=== PATIENT | female | born 1970 | race Caucasian/White ===

== ENCOUNTER → 2016-06-21 | Outpatient (CLI) | payer BC ==
[~2016-06-21] MED LIST: MTR600X PO; MULT-506 PO; NORGTAB3 PO; OXYC-57 PO
== END | disposition home or self-care (01) ==
LOC: C.PAPS 13:28
PROVIDERS: ATTEND Obstetrics & Gynecology
DX: Z01.419 Encounter for gynecological examination (general) (routine) without abnormal findings (principal)

== ENCOUNTER → 2016-07-07 | Outpatient (CLI) | payer BC ==
--- NOTE | 2016-07-07 16:41 | MAMMOGRAPHY REPORT ---
BILATERAL DIGITAL SCREENING MAMMOGRAM TOMOSYNTHESIS WITH CAD: 07/07/2016 TECHNIQUE: Breast tomosynthesis in addition to standard 2D mammography was performed. Current study was also evaluated with a Computer Aided Detection (CAD) system. COMPARISON: Comparison is made to exam dated: 03/07/2014 mammogram - [facility]. BREAST COMPOSITION: The tissue of both breasts is extremely dense, which lowers the sensitivity of mammography. FINDINGS: There is a newly visualized round circumscribed 5 mm mass seen within the left superior s ubareolar breast, for which ultrasound and possible additional spot compression tomosynthesis views are recommended for further evaluation. The remainder of both breasts are stable compared to prior exams, without suspicious masses, calcifi cations, or areas of architectural distortion noted. Bilateral benign-appearing calcifications are not significantly changed. IMPRESSION: ACR BI-RADS CATEGORY 0: INCOMPLETE EVALUATION: NEED ADDITIONAL IMAGING EVALUATION Left breast mass, for which additional imaging evaluation is recommended. The patient will be galdamez d to schedule an appointment. Approximately 10% of breast cancers are not detected with mammography. A negative mammographic repor t should not delay biopsy if a clinically suggestive mass is present. Lucia Green M.D. ah/:07/07/2016 14:53:06 Deployment Manager: Brittney BRODY(Jasmin)(Brit), [facility] letter sent: Addl Imaging 0 BI-RADS Code: ACR BI-RADS Category 0: Incomplete Evaluation: Need Additional Imaging Evaluation
== END | disposition home or self-care (01) ==
LOC: C.MAMM 10:20
PROVIDERS: ATTEND Obstetrics & Gynecology
DX: Z12.31 Encounter for screening mammogram for malignant neoplasm of breast (principal); N63 Unspecified lump in breast

== ENCOUNTER → 2016-07-14 | Outpatient (CLI) | payer BC ==
--- NOTE | 2016-07-14 13:30 | MAMMOGRAPHY REPORT ---
ULTRASOUND OF LEFT BREAST: 07/14/2016 CLINICAL HISTORY: Callback from screening mammogram for left breast mass. COMPARISON: Comparison is made to exams dated: 07/07/2016 mammogram and 03/07/2014 mammogram - [facility]. TECHNIQUE: Real-time targeted ultrasound of the left breast was performed. FINDINGS: Targeted ultrasound was performed of the left superior subareolar region, in the region o f the new circumscribed mass seen on the recent tomosynthesis screening mammogram. In the left 12:0 0 subareolar breast, there is an oval anechoic circumscribed parallel mass which measures 5 x 3 x 4 mm. This corresponds with the mammographic mass and is consistent with a benign simple cyst. A few echoes are seen anteriorly within the mass, which are felt to represent artifactual echoes due to t he superficial location of the mass. IMPRESSION: ACR BI-RADS CATEGORY 2: BENIGN Benign 5 mm simple cyst in the left 12:00 subareolar breast, which corresponds with the mammographic mass. There is no sonographic evidence of malignancy. A 1 year screening mammogram is recommended . The patient was verbally notified of the results. Lucia Green M.D. ah/:07/14/2016 09:55:22 Attending Technologist: Tali BRODY(R)(M), [facility] Waste[employer] Supervisor: Lucia Green MD, [facility] letter sent: Normal 1/2 BI-RADS Code: ACR BI-RADS Category 2: Benign
== END | disposition home or self-care (01) ==
LOC: C.MAMM 09:36
PROVIDERS: ATTEND Obstetrics & Gynecology
DX: N60.02 Solitary cyst of left breast (principal)

== ENCOUNTER → 2016-07-14 | Outpatient (CLI) | payer BC | END | disposition home or self-care (01) | LOC: C.PATHSPEC 18:20 | PROVIDERS: ATTEND Obstetrics & Gynecology | DX: N93.9 Abnormal uterine and vaginal bleeding, unspecified (principal) ==

== ENCOUNTER → 2016-08-29 | Outpatient (CLI) | payer BC ==
[2016-08-29 16:41] LABS: BASO % 0.6 %; BASO ABS # 0.05 K/uL (0-0.2); COMPLETE YES; EOS % 1.9 %; HEMATOCRIT 40.5 % (37-47); IG% 0.1 %; LYMPH % 18.6 %; LYMPH ABS # 1.57 K/uL (1.2-3.4); MEAN CELL VOLUME 94.8 fL (80-100); MEAN CORPUSCULAR HEMOGLOBIN 31.6 pg (25-34); MEAN CORPUSCULAR HGB CONC 33.3 g/dl (32-36); MEAN PLATELET VOLUME 10.6 fL (7.4-10.4); MONO % 6.9 %; NEUT % 71.9 %; PLATELET COUNT 287 K/uL (130-400); RED BLOOD COUNT 4.27 M/uL (4.2-5.4); WHITE BLOOD COUNT 8.44 K/uL (4.8-10.8)
== END | disposition home or self-care (01) ==
LOC: C.LAB1850 15:05
PROVIDERS: ATTEND Obstetrics & Gynecology
DX: Z01.812 Encounter for preprocedural laboratory examination (principal)

== ENCOUNTER 2016-09-09 07:31 | Observation (INO) | payer BC ==
[2016-09-08 14:25] VITALS: BMI 21.0
[~2016-09-09] VITALS: Ht 167.6 cm; Wt 59.5 kg
[2016-09-09] VITALS (7 sets, daily range): BP systolic 95–119; BP diastolic 60–75; PULSE 47–73; TEMP 36.4–36.7; O2SAT 96–100; Ht 167.6 cm; Wt 59.5 kg
[~2016-09-09 07:31] MED LIST changes: +CEFAZOLIN 2000 MG/60 ML D5W 50 ML IV SCH; +LACTATED RINGER'S 1000ML 1,000 ML IV SCH; -MTR600X PO; -OXYC-57 PO
[2016-09-09] MEDS ORDERED: NURSING VERBAL MED ORDER ONE (08:15)
[2016-09-09] MEDS ORDERED: SCOPOLAMINE 1.5 MG TDSY TD ONE (08:18)
[2016-09-09] MEDS ORDERED: PROPOFOL IV EMULSION 10 MG/ML 20 ML VIAL IV ONE (08:29)
[2016-09-09] MEDS ORDERED: NEOSTIGMINE METHYLSULFATE 5 MG/5 ML SYR ONE (08:29)
[2016-09-09] MEDS ORDERED: GLYCOPYRROLATE INJ 0.2 MG/ML VIAL ONE (08:29)
[2016-09-09] MEDS ORDERED: DEXAMETHASONE SOD INJ 4 MG/ML VIAL ONE (08:29)
[2016-09-09] MEDS ORDERED: ONDANSETRON INJ 2 MG/ML 2 ML VIAL ONE (08:29)
[2016-09-09] MEDS ORDERED: ROCURONIUM BROMIDE 10 MG/ML 5 ML VIAL ONE (08:29)
[2016-09-09] MEDS ORDERED: BUPIVACAINE 0.5 % 5 MG/1 ML MPF 30ML VIAL ONE (08:29)
[2016-09-09] MEDS ORDERED: LIDOCAINE HCL 2% 2 ML VIAL (20MG/ML) ONE (08:29)
[2016-09-09] MEDS ORDERED: METHYLENE BLUE 0.5% 10 ML VIAL ONE (08:29)
[2016-09-09] MEDS ORDERED: EpHEDrine SULFATE INJ 50 MG/ML AMP IV PRN (08:30)
[2016-09-09] MEDS ORDERED: FENTANYL CITRATE INJ 50 MCG/1 ML 2 ML VIAL ONE ×2 (08:30→11:08)
[2016-09-09] MEDS ORDERED: MIDAZOLAM HCL 1 MG/ML 2ML VIAL ONE (08:30)
[2016-09-09] MEDS ORDERED: ONDANSETRON INJ 2 MG/ML 2 ML VIAL IV PRN ×2 (08:30→12:15)
[2016-09-09] MEDS ORDERED: ATROPINE SULFATE 0.1 MG/ML 5ML SYR IV PRN (08:30)
--- NOTE | 2016-09-09 08:31 | History & Physical Bridge Note ---
H&P Re-Evaluation Bridge Note: I have examined the patient, reviewed the History & Physical and in the interval since the performance of the History & Physical I have noted the following changes of clinical significance: No changes noted
[2016-09-09] MEDS ORDERED: PHENYLEPHRINE 100MCG/ML 5ML SYR ONE (11:27)
[2016-09-09] MEDS ORDERED: LACTATED RINGER'S 1000ML 1,000 ML IV SCH (12:08)
[2016-09-09] MEDS ORDERED: OXYC-57 PO (12:12)
[2016-09-09] MEDS ORDERED: MTR600X PO (12:12)
--- NOTE | 2016-09-09 12:13 | Discharge Instructions ---
Discharge Instructions Date of Service Sep 09, 2016. Admission Reason for Admission: Abnormal Uterine Bleeding Discharge Discharge Diagnosis / Problem: after surgery Discharge Goals Goal(s): Routine recovery after surgery Activity Recommendations Activity Limitations: as noted below . Instructions / Follow-Up Instructions / Follow-Up POST OPERATIVE: BOWEL FUNCTION/MEDICATIONS: 1. Constipation pain and discomfort are the most common complaints 5-7 days after surgery. Points 2-6 address the things that can help. 2. Chewing gum can help stimulate the gut and help improve digestion and motility. 3. Milk of Magnesia 1-2 times per day until return of bowel function. 4. Colace is a stool softener that helps. Taking this 2-3 times per day until bowel function returns to normal is highly recommended. 5. Dulcolax is a laxative that may be used if several days have passed without a bowel movement. Alternatively Miralax may be used daily instead. 6. Drink plenty of fluids as this will also reduce constipation. 7. Narcotic pain medications will be prescribed by your physician. They are safe to use and we encourage you to use them. If you are not allergic, ibuprofen will also be prescribed. Many patients will be able to transition off of the narcotic medications to ibuprofen by postoperative day 3. ACTIVITY RECOMMENDATIONS: 1. Get plenty of rest and listen to your body. If you are tired, take a nap. 2. You may shower, but do not take a tub bath until you see your doctor at the 2 week post operative visit. 3. Absolutely NO intercourse and nothing in the vagina until you are examined by your doctor at the 8 week visit. At that visit it will be determined when such activities can be resumed. This can range from 6-12 weeks after your surgery depending on healing time. 4. The main physical activity in the first week should be walking. By the second week you can slowly increase activity. There are no limits on walking up and down stairs. 5. Do not lift more than 5-10 lbs for 4 weeks. Remember the "one-handed rule", i.e. if you can lift something with only one hand it's likely okay. 6. Minimize fabricator artificial breast like vacuuming and exercising for 4 weeks. "Overdoing it" can lead to incisions not healing, pain and vaginal bleeding , so again, listen to your body. 7. Driving can be resumed when you feel able. Do not drive within 24 hours of taking a narcotic medication. EXPECTATIONS: 1. Vaginal spotting, bleeding and discharge are common after surgery. There may even be an odor to the discharge which is often related to sutures used in the vagina. If you experience heavy vaginal bleeding, call the office number day or night [phone]. 2. Bladder discomfort is common after surgery from the catheter. This usually resolves in 1-2 weeks. 3. By the end of the 3rd or 4th week you should be feeling much better. It may take up to 6 weeks for your energy levels to return to normal. 4. Narcotic medications have side effects such as: dizziness, headache, nausea and/or vomiting. If you suspect your pain medication is causing problems, call our office and we may be able to prescribe an alternate medication. 5. The skin incisions are often covered with a liquid bandage. This will gradually peel off over time. CALL THE OFFICE IF YOU HAVE ANY OF THE FOLLOWIN. Temperature of 101 degrees or higher. 2. Severe abdominal or pelvic pain not relieved by pain medication. 3. Persistent nausea or vomiting. 4. Increased pain with urination or difficulty urinating. 5. Bright red bleeding that soaks more than 1 pad per hour. CONTACT PHONE NUMBERS: Main Office: [phone] Surgical Nurse: [phone] extension [phone] FOLLOW-UP: Post-Operative Appointments: * Individual instructions will have been given about the timing of your first examination, but this is usually at the end of the second week home. * You will need to call the office at soon after discharge to make the appointment for your post-op check-up if it has not already been scheduled. * Additional information regarding activity, sexual intercourse and when to return to work will be given at this appointment. WE WISH YOU A SPEEDY RECOVERY! Current Hospital Diet Patient's current hospital diet: Discharge Diet Recommended Diet: Regular Diet Procedures Procedures Performed: Robot Assisted Total Laparoscopic Hysterectomy, bilateral salpingectomy, cystoscopy Pending Studies Studies pending at discharge: yes List of pending studies: pathology Medical Emergencies . Who to Call and When: Medical Emergencies: If at any time you feel your situation is an emergency, please call 911 immediately. . Non-Emergent Contact Non-Emergency issues call your: Strategic Planning Manager . . "Provider Documentation" section prepared by Aziza Monroe. VTE Core Measure Inpt VTE Proph given/why not?: Treatment not indicated
[2016-09-09] MEDS ORDERED: KETOROLAC TROMETHAMINE 30 MG/ML VIAL IV. PRN (12:15)
[2016-09-09] MEDS ORDERED: IBUPROFEN 600 MG TAB PO PRN (12:15)
[2016-09-09] MEDS: FENTANYL CITRATE INJ 50 MCG/1 ML 2 ML VIAL IV PRN ×2 (12:15→12:20)
[2016-09-09] MEDS ORDERED: SIMETHICONE 80 MG CHEW PO PRN (12:15)
[2016-09-09] MEDS ORDERED: OXYCODONE/ACETAMINOPHEN 5-325 TAB PO PRN ×2 (12:15)
[2016-09-09] MEDS ORDERED: ACETAMINOPHEN 325 MG TAB PO PRN (12:15)
[2016-09-09] MEDS ORDERED: IV FLUIDS COMPLETED PRN (12:30)
--- NOTE | 2016-09-09 12:44 | [facility] Post Operative Brief Note ---
Immediate Operative Summary Operative Date Sep 09, 2016. Pre-Operative Diagnosis subserous leiomyoma of uterus, abnormal uterine bleeding Post-Operative Diagnosis subserous & pedunculated leiomyoma of uterus, abnormal uterine bleeding Procedure(s) Performed Robot Assisted Total Laparoscopic Hysterectomy, bilateral salpingectomy, cystoscopy Surgeon Dr Aziza Monroe Electrostatic Painter Surgeon(s) Dr Serge Matson Estimated Blood Loss 20 ML Findings markedly enlarged uterus about 16wk size with pedunculated fibroid off of left fundus. nl ovaries bilaterally and fallopian tubes. nl liver edge and appendix seen. cysto findings with nl bladder filling and nl ureteral jets. Fluids (cc crystalloids) 1200 Specimens A: uterus, cervix, bilateral fallopian tubes, Drains tanner Anesthesia general Complication(s) None Disposition Recovery Room / PACU
--- NOTE | 2016-09-09 13:35 | OPERATIVE REPORT ---
DATE OF OPERATION: 09/09/2016 PREOPERATIVE DIAGNOSES: 1. Abnormal uterine bleeding. 2. Symptomatic fibroid uterus. POSTOPERATIVE DIAGNOSES: Same. PROCEDURES PERFORMED: 1. Total laparoscopic hysterectomy. 2. Bilateral salpingectomies. 3. Cystoscopy. 4. Robotic assistance. SURGEON: Dr. Aziza Monroe. CONVEYOR LINE BAKERY WORKER: Rahat Matson MD ANESTHESIA: General. IV FLUIDS: 1200 mL. ESTIMATED BLOOD LOSS: 20 mL. FINDINGS: Markedly enlarged uterus approximately 16 weeks size with fibroids, pedunculated fibroid additionally off the left aspect. Normal ovaries and fallopian tubes bilaterally. Normal appendix seen. Normal liver edge. Cystoscopy findings with normal bladder filling and normal ureteral jets. INDICATIONS: A 46-year-old 1, para 0 with symptomatic fibroid uterus and heavy vaginal bleeding, who desires definitive surgical therapy. Her uterus was approximately 13 weeks' size on ultrasound and she began to have pressure and heaviness in the pelvis. She also reported heavy flow despite being on the control pills and some prolonged bleeding too. This was new for her. She was counseled about options to include myomectomy, uterine artery embolization and hysterectomy due to her symptomatic fibroid uterus and she wanted definitive hysterectomy. Her insurance would not cover Lupron and she did not think that she wanted it anyway due to side effects in an attempt to shrink the uterus as she wanted a trial at minimally invasive hysterectomy. DESCRIPTION OF PROCEDURE: The patient was taken to the operating room and identified. After adequate general anesthesia was obtained, she was in the dorsal lithotomy position and prepped and draped in the usual sterile fashion. Attention was turned to the patient's vagina, where a Mera catheter was placed with return of clear yellow urine. A weighted speculum and anterior retractor were used to visualize the cervix, which was grasped at its anterior lip with an Allis clamp. A single interrupted suture of 0 Vicryl was placed at the 3 o'clock position. The cervix was dilated using Hegar dilators and then was sounded to greater than 12 cm. The VCare uterine manipulator device was gently placed through the cervical os into the uterine cavity and a balloon was inflated. The suture material was attached to the first cup and tied down and the stabilized cup was then placed. All instruments vaginally otherwise had been removed. Attention was then turned to the patient's abdomen. The supraumbilical skin incision was made with the scalpel. The Veress needle was placed intraperitoneally with an opening pressure of 2 mmHg. A CO2 pneumoperitoneum was created. The 12-mm optical trocar was placed under direct visualization to the patient's abdomen. The patient was placed in steep Trendelenburg. Using the camera, the pelvis and abdomen were inspected with the findings as noted above. The da Mikhail trocar sites were created by first creating skin incisions and then placing under direct visualization da Mikhail trocars. This was in the left lower quadrant, the right mid quadrant and the right lower quadrant. An additional trocar site for assistance was created as a 5-mm site in the left mid quadrant. All the trocars were brought into the pelvis under direct visualization. The blunt probe was brought into the left trocar site to allow for reflection of the bowels away from the planned operative sites. At this point, the camera was removed. The da Mikhail robot was brought to the patient's bedside. The instrument arms were connected to the appropriate trocars. The da Mikhail camera was introduced. The bipolar forcep was brought into the pelvis under direct visualization from the left trocar site. The #1 arm had introduced to the monopolar shamar and through the #3 arm the Prograsp was introduced. All this was under direct visualization. The surgeon then went to the console. The uterus was manipulated to reveal the uterine ovarian ligament on the left side. The round ligament was briefly seen on that side and with sequential coagulation and cutting with monopolar shamar, the round ligament, fallopian tube, and uterine ovarian complex were taken down on this side. The peritoneal reflection anteriorly and posteriorly was opened up into and the bladder flap was begun from the left side towards the midline. The VCare cup was able to be seen and the ultimate planned colpotomy was cleared off of the peritoneum. The uterine artery vessels were skeletonized on the side. They were coagulated and transected in sequential fashion using the bipolar cautery and the monopolar shamar. Attention was then turned to the patient's right uterine ovarian ligament. This side was much less mobile due to the fibroids. The uterine ovarian ligament was first taken down sequentially using coagulation and then cutting. The fallopian tube complex was taken down in a similar fashion. The peritoneal reflection had to further be dissected with care to come around a protruding fibroid from this side. The round ligament was then identified and it was coagulated and also transected. Using the ProGrasp throughout the case, the uterus was manipulated side to side in order to have better visualization. This was required at this time in order to visualize the anterior bladder reflection. The reflection was taken down with care not to injure the bladder, crossed the midline connecting the dissection from the right side to the left side. The bladder was pushed well away from the planned colpotomy. The colpotomy site anteriorly was completely cleared off. The uterine artery pedicles were further coagulated and transected on this side. The cardinal ligament attachments at each side had been coagulated and transected to again reveal the planned colpotomy site. It was clear that the uterosacral ligaments were thick. At beginning of the case, the ureters had been seen coursing well laterally to the planned operative sites. At this point, the colpotomy was begun from the right side. It was carried around anteriorly and circumferentially. The uterosacral ligaments as mentioned were thick and did require some sequential coagulation and cutting. Once the specimen was completely transected, it was freed from the Cmxtwenty uterine manipulator device and left in the upper abdomen. The patient was given the methylene blue IV and the 2-0 V-Loc 90 suture was passed vaginally for repair of the vaginal cuff. There were no active bleeding sites. The #1 instrument arm was replaced with large needle pole truck driver and the vaginal cuff was closed in the routine fashion using the suture material. The suture material was then cut and the needle was brought out through one of the da Mikhail trocar sites. The pelvis was irrigated. There were no active bleeding sites. The cystoscopy then took place revealing normal bladder filling and normal ureteral jets. The cystoscopy was then discontinued and a new Mera catheter was placed. At this point, the robot was undocked from the trocars and moved away from the patient's bedside. It is significant to mention that prior to doing so, the bilateral salpinges had been transected and removed to be sent as specimen. At this point, the trocar site for the camera was removed. A 15-mm trocar was placed under direct visualization using a 5-mm camera from the lateral trocar site. Once this was introduced, the specimen was also identified and grasped via a lateral trocar site with a 5-mm grasper and pulled into the pelvis. The large specimen bag was then placed through the 15-mm trocar site and the specimen was placed within the bag itself. The operative bag was then closed and brought out through the opening of the 15-mm trocar site by removing the trocar. With the bag intact, the Adrian device for visualization was placed in the routine fashion. This allowed elevation of the specimen towards the anterior abdominal wall as well as maintenance of the pneumoperitoneum. The camera was used to confirm this. At this point, very carefully, the specimen was elevated using towel clips and using multiple blades, was carved out while being contained within the bag. Once the specimen was completely removed, the bag was removed. The camera had been used throughout the process to ensure that the bag was elevated up against the anterior abdominal wall and well away from the pelvic organs below. All of the specimens were removed after being contained in the bag and sent to pathology. The fascia at the supraumbilical site was then closed in a running fashion using 0 Vicryl. All incisions were injected with Marcaine and then a stitched with 4-0 Vicryl for excellent hemostasis. This was in a subcuticular fashion. They were dressed with Dermabond. The CO2 gas had already been able to escape from the patient's abdomen. At this point, the patient was returned to the supine position. She was awoken from anesthesia and transferred to the recovery room in stable condition. All sponge, lap and needle counts were correct x2. I attest to the content of the Intraoperative Record and any orders documented therein. Any exceptions are noted below. BOONE
--- NOTE | 2016-09-09 13:58 | Anesthesiology Progress Note ---
Anesthesia Post Op Note Date & Time Sep 09, 2016 at 13:58 Vital Signs Pain Intensity: 4.0 Vital Signs Past 12 Hours Date Time Temp Pulse Resp B/P Pulse Ox O2 Delivery O2 Flow Rate FiO2 09/09/16 12:55 100 Nasal Cannula 2.0 09/09/16 12:55 Nasal Cannula 2.0 09/09/16 12:55 36.4 48 14 106/68 100 Nasal Cannula 2.0 09/09/16 12:45 36.6 54 18 108/70 99 Nasal Cannula 3 09/09/16 12:35 50 18 110/70 99 Nasal Cannula 3 09/09/16 12:25 53 20 108/67 100 Nasal Cannula 4 09/09/16 12:15 57 20 110/73 100 Mask 10 09/09/16 12:07 36.6 61 18 109/72 100 Mask 10 09/09/16 07:45 36.7 65 18 118/68 100 Room Air Notes Mental Status: alert / awake / arousable, participated in evaluation Pt Amnestic to Procedure: Yes Nausea / Vomiting: adequately controlled Pain: adequately controlled Airway Patency, RR, SpO2: stable & adequate BP & HR: stable & adequate Hydration State: stable & adequate Anesthetic Complications: no major complications apparent
[2016-09-09] MEDS ORDERED: DOCUSATE SODIUM 100 MG CAP PO SCH (21:00)
--- NOTE | 2016-09-14 18:53 | DISCHARGE SUMMARY ---
ADMISSION DIAGNOSES: 1. Abnormal uterine bleeding. 2. Symptomatic fibroid uterus. DISCHARGE DIAGNOSES: Same. PROCEDURES: 1. Total laparoscopic hysterectomy. 2. Bilateral salpingectomies. 3. Cystoscopy. 4. Robotic assistance. BRIEF HISTORY AND HOSPITAL COURSE: A 46-year-old 1, para 0 with symptomatic fibroid uterus and heavy vaginal bleeding who desires definitive surgical therapy. The uterus was approximately 13 weeks size on ultrasound and she began to have pressure and heaviness in the pelvis. She also reported heavy flow despite being on control pills and some prolonged bleeding as well. This was all new for her. She was counseled about options to include myomectomy, uterine artery embolization and hysterectomy due to her symptomatic fibroid uterus and she desired definitive hysterectomy. Her insurance would not cover Lupron for shrinkage but she wanted to attempt a minimally invasive hysterectomy locally anyway. She underwent the above stated procedure without incident with an estimated blood loss of 20 mL. Her postop course and recovery was uncomplicated and she was stable for discharge to home on her postop day #0 after being able to ambulate, void spontaneously without difficulty and tolerate a regular diet. She was given appropriate discharge instructions as well as pain medication prescriptions and instructed to follow up in 2 weeks' time for a postop checkup.
== END 2016-09-09 20:55 | disposition home or self-care (01) ==
LOC: C.ACU 07:31 → C.MS4N 08:05
PROVIDERS: ADMIT Obstetrics & Gynecology; ATTEND Obstetrics & Gynecology
DX: D25.2 Subserosal leiomyoma of uterus (principal); N93.9 Abnormal uterine and vaginal bleeding, unspecified; Z80.49 Family history of malignant neoplasm of other genital organs; Z83.3 Family history of diabetes mellitus
CPT/HCPCS: 58573; S2900